=== PATIENT | female | born 1985 | race Hispanic/Latino ===

== ENCOUNTER 2017-09-04 21:19 | Emergency (ER) | payer BC, OTHER ==
[~2017-09-04 21:19] MED LIST: ISOVUE-370 76%-LOCM 1 ML ONE
--- NOTE | 2017-09-04 22:09 | RAD ---
ONE VIEW CHEST: 09/04/17 HISTORY: Pain. COMPARISON: 01/13/16. FINDINGS: Normal cardiac silhouette. The lungs and pleural bases are clear. No pneumothorax or osseous abnormal ities. IMPRESSION: No acute cardiopulmonary process. POS: [facility]
[2017-09-04 22:21] LABS: Eosinophils 1 % (0-10); Hemoglobin 12.5 g/dL (12.0-16.0); Lymphocytes 49 % (21-51); MDiff Complete? YES; Mean Corpuscular HGB CONC 33.1 g/dL (32.0-36.0); Mean Corpuscular Hemoglobin 29.4 pg (27.0-31.0); Mean Corpuscular Volume 88.8 fl (81.0-99.0); Monocytes 4 % (0-10); Neutrophil 45 % (42-75); PLT Morphology Comment Appears Increased; Platelet Count 419 thou/uL (130-400); RBC Distribution Width 12.3 % (11.5-14.5); Red Blood Cell (RBC) Count 4.25 mill/uL (4.20-5.40); White Blood Cell (WBC) Count 14.6 thou/uL (4.8-10.8)
[2017-09-04 22:29] LABS: BHCG - Serum Negative (NEGATIVE); Pregs Control Background? CLEAR/WHITE (CLR/WHITE); Pregs Control Bar Appear? YES (CONTROL BAR)
[2017-09-04 22:39] LABS: CKMB 0.6 ng/mL (0-6.6); Troponin I Less than 0.010 ng/mL (< 0.028)
[2017-09-04 22:49] LABS: ALT (SGPT) 16 U/L (8-55); AST (SGOT) 32 U/L (5-34); Albumin 4.4 g/dL (3.5-5.0); Alkaline Phosphatase 61 U/L (40-150); Anion Gap 17 mmol/L (10-20); BUN (Urea Nitrogen) 13 mg/dL (7.0-18.7); Bilirubin, Total 0.3 mg/dL (0.2-1.2); CK (CPK) 62 U/L (29-168); Calc. Creatinine Clearance 0 mL/min (70-130); Calcium 9.3 mg/dL (7.8-10.44); Carbon Dioxide 20 mmol/L (22-29); Chloride 105 mmol/L (98-107); Estimated GFR-MDRD 80; Globulin 3.5 g/dL (2.4-3.5); Glucose 138 mg/dL (70-105); Lipase 42 U/L (8-78); Potassium 5.5 mmol/L (3.5-5.1); Protein, Total 7.9 g/dL (6.0-8.3); Sodium 136 mmol/L (136-145)
[2017-09-04 22:55] LABS: Thyroid Stimulating Hormone 2.4858 uIU/mL (0.35-4.94)
--- NOTE | 2017-09-05 06:58 | CT ---
CTA CHEST WITH 3D VOLUME RENDERING: INDICATIONS: Substernal chest pain. Difficulty breathing. FINDINGS: There is no evidence of a significant filling defect of the pulmonary arterial system. The thoracic aorta is normal in caliber. There is no evidence of consolidation, effusion, or pneumothorax. No ac [place] osseous pathology is evident. IMPRESSION: No acute pulmonary embolus is seen. POS: [facility]
== END 2017-09-05 00:31 | disposition home or self-care (01) ==
LOC: ERS 21:19
DX: R07.89 Other chest pain (principal)
CPT/HCPCS: 71045; 71275; 80053; 82550; 82553; 83690; 83880; 84443; 84484; 84703; 85025; 85379; 93005; 96360; 96361

== ENCOUNTER 2018-01-31 19:47 | Emergency (ER) | payer BC, OTHER, SELFPAY ==
[2018-01-31 20:20] LABS: #Basophils 0.1 thou/uL (0.0-0.2); #Lymphocytes 2.4 thou/uL (1.20-3.40); #Monocytes 0.5 thou/uL (0.11-0.59); #Neutrophils 11.8 thou/uL (1.40-6.50); %Basophils 0.8 % (0.0-1.0); %Eosinophils 0.2 % (0.0-10.0); %Lymphocytes 16.4 % (21.0-51.0); %Monocytes 3.2 % (0.0-10.0); %Neutrophils 79.5 % (42.0-75.0); Hemoglobin 13.4 g/dL (12.0-16.0); Mean Corpuscular HGB CONC 33.1 g/dL (32.0-36.0); Mean Corpuscular Hemoglobin 28.6 pg (27.0-31.0); Mean Corpuscular Volume 86.2 fL (78.0-98.0); Mean Platelet Volume 7.3 fL (7.4-10.4); Platelet Count 527 thou/uL (130-400); RBC Distribution Width 12.6 % (11.5-14.5); Red Blood Cell (RBC) Count 4.69 mill/uL (4.20-5.40); White Blood Cell (WBC) Count 14.9 thou/uL (4.8-10.8)
[2018-01-31 22:49] LABS: ALT (SGPT) 13 U/L (8-55); AST (SGOT) 15 U/L (5-34); Albumin 4.8 g/dL (3.5-5.0); Alkaline Phosphatase 71 U/L (40-150); Anion Gap 15 mmol/L (10-20); BUN (Urea Nitrogen) 7 mg/dL (7.0-18.7); Bilirubin, Total 0.3 mg/dL (0.2-1.2); Calc. Creatinine Clearance 0 mL/min (70-130); Calcium 9.7 mg/dL (7.8-10.44); Carbon Dioxide 23 mmol/L (22-29); Chloride 105 mmol/L (98-107); Estimated GFR-MDRD 88; Globulin 3.4 g/dL (2.4-3.5); Glucose 132 mg/dL (70-105); Potassium 3.9 mmol/L (3.5-5.1); Protein, Total 8.2 g/dL (6.0-8.3); Sodium 139 mmol/L (136-145)
[2018-01-31 23:20] LABS: Bilirubin Negative (Negative); Blood, Urine Trace (Negative); Clarity CLEAR (Clear); Glucose, Urine (Dipstick) Negative (Negative); Leukocyte Negative (Negative); Nitrite Negative (Negative); Protein, Urine (Dipstick) Negative (Neg-Trace); Urobilinogen 0.2 mg/dL (0.2-1.0); pH, Urine 6.5 (5.0-9.0)
[2018-01-31 23:21] LABS: Bacteria/HPF None Seen HPF (None Seen); Hyaline Casts/LPF 0-3 HYALINE CAST LPF (0-3 Hyaline); Pregnancy Test - Urine (BHCG) Negative (Negative); Pregu Control Background? CLEAR/WHITE (CLR/WHITE); Pregu Control Bar Appear? YES (CONTROL BAR); RBC/HPF 0-3 HPF (0-3); Specific Gravity 1.003 (1.002-1.036); Squamous Epithelial 0-3 HPF (0-3); WBC/HPF None Seen HPF (0-3)
[2018-01-31 23:22] LABS: Specific Gravity, Urine 1.003 (1.002-1.036)
[2018-02-01 00:01] LABS: CKMB 0.6 ng/mL (0-6.6); Troponin I Less than 0.010 ng/mL (< 0.028)
--- NOTE | 2018-02-01 07:13 | RAD ---
PORTABLE AP CHEST: Date: 01/31/18 HISTORY: Abnormal hemoglobin level. Weakness. Chest pain. COMPARISON: 09/04/17. FINDINGS: The cardiac silhouette and pulmonary vasculature are within normal limits. The lungs remain clear. Th ere has been no interval change from prior study. IMPRESSION: No acute cardiopulmonary process. POS: [facility]
== END 2018-02-01 00:53 | disposition home or self-care (01) ==
LOC: ERS 19:47
DX: R59.1 Generalized enlarged lymph nodes (principal)
CPT/HCPCS: 36415; 71045; 80053; 81003; 81015; 81025; 82553; 84484; 85025; 85379; 86850; 86900; 86901; 93005

== ENCOUNTER 2018-02-03 14:19 | Observation (INO) | payer SELFPAY ==
[2018-02-03 15:11] LABS: #Basophils 0.1 thou/uL (0.0-0.2); #Eosinphils 0.1 thou/uL (0.0-0.7); #Lymphocytes 2.7 thou/uL (1.20-3.40); #Monocytes 0.7 thou/uL (0.11-0.59); #Neutrophils 6.6 thou/uL (1.40-6.50); %Basophils 1.1 % (0.0-1.0); %Eosinophils 0.9 % (0.0-10.0); %Lymphocytes 26.3 % (21.0-51.0); %Monocytes 7.2 % (0.0-10.0); %Neutrophils 64.5 % (42.0-75.0); Hemoglobin 13.6 g/dL (12.0-16.0); Mean Corpuscular HGB CONC 33.2 g/dL (32.0-36.0); Mean Corpuscular Hemoglobin 28.5 pg (27.0-31.0); Mean Corpuscular Volume 85.8 fL (78.0-98.0); Mean Platelet Volume 7.3 fL (7.4-10.4); Platelet Count 469 thou/uL (130-400); RBC Distribution Width 12.8 % (11.5-14.5); Red Blood Cell (RBC) Count 4.79 mill/uL (4.20-5.40); White Blood Cell (WBC) Count 10.2 thou/uL (4.8-10.8)
[2018-02-03 15:18] LABS: BHCG - Serum Negative (NEGATIVE); Pregs Control Background? CLEAR/WHITE (CLR/WHITE); Pregs Control Bar Appear? YES (CONTROL BAR)
--- NOTE | 2018-02-03 15:25 | RAD ---
UPRIGHT PORTABLE CHEST 1 VIEW: HISTORY: A 33-year-old female with a history of syncope. COMPARISON: 01/31/18. FINDINGS: Heart size is normal. The lungs are clear. No pneumonia, edema, or pleural effusion. IMPRESSION: No acute intrathoracic disease. Stable from 01/31/18. POS: [facility]
[2018-02-03 15:26] LABS: ALT (SGPT) 13 U/L (8-55); AST (SGOT) 13 U/L (5-34); Albumin 5.1 g/dL (3.5-5.0); Alkaline Phosphatase 77 U/L (40-150); Anion Gap 16 mmol/L (10-20); BUN (Urea Nitrogen) 8 mg/dL (7.0-18.7); Bilirubin, Total 0.4 mg/dL (0.2-1.2); Calc. Creatinine Clearance 0 mL/min (70-130); Calcium 10.4 mg/dL (7.8-10.44); Carbon Dioxide 23 mmol/L (22-29); Chloride 104 mmol/L (98-107); Estimated GFR-MDRD 77; Globulin 3.3 g/dL (2.4-3.5); Glucose 140 mg/dL (70-105); Potassium 4.3 mmol/L (3.5-5.1); Protein, Total 8.4 g/dL (6.0-8.3); Sodium 139 mmol/L (136-145)
[2018-02-03 15:29] LABS: Bilirubin Negative (Negative); Blood, Urine Negative (Negative); Clarity CLEAR (Clear); Glucose, Urine (Dipstick) Negative (Negative); Leukocyte Negative (Negative); Nitrite Negative (Negative); Protein, Urine (Dipstick) Negative (Neg-Trace); Urobilinogen 0.2 mg/dL (0.2-1.0)
[2018-02-03] MEDS ORDERED: Piperacillin/Tazobactam 4.5 GM VIAL ONE (15:35)
[2018-02-03 15:37] LABS: Specific Gravity, Urine 1.002 (1.002-1.036)
[2018-02-03] MEDS ORDERED: Ondansetron ODT 4 MG TAB SL PRN (19:03)
[2018-02-03] MEDS ORDERED: Ondansetron HCl/PF 4 MG/2 ML Vial IVP PRN (19:03)
[2018-02-03] MEDS ORDERED: HYDROcodone/Acetaminophen 5/325 mg Tablet PO PRN ×2 (19:03)
[2018-02-03] MEDS ORDERED: Acetaminophen 325 MG TAB PO PRN (19:03)
[2018-02-03 19:35] VITALS: BMI 25.6
[2018-02-03 19:38] LABS: Lactic Acid 1.8 mmol/L (0.5-2.2)
[2018-02-03] MEDS: Sodium Chloride 0.9% 1,000 ML IV SCH (19:55)
--- NOTE | 2018-02-03 22:43 | HP ---
DATE OF ADMISSION: 02/03/2018 CHIEF COMPLAINT: Syncope. HISTORY OF PRESENT ILLNESS: The patient is a 33-year-old female who presented via the emergency depa rtment. The patient's symptoms started 1 month ago. She initially started having some burning in he r throat, then in her mouth and tongue area. She saw a physician at that time and was told she had s ome enlarged lymph nodes and was started on a 10-day course of antibiotics. Her symptoms did not jerzy nge. She was told that it might be reflux and so she was prescribed Zantac. Her who is a pr eMed student decided to try some wzfn-wdy-lcwgofm Prilosec first. When that did not help, they tried the prescription, Zantac, that did not help either. About one week ago, she started developing some chest pain, cough, and sputum production. She describes the chest pain as a pulsating type. She al so has some associated generalized fatigue and some mild dyspnea on exertion. Two days ago, patient had pain in her upper abdomen as well. She also reports that 3 weeks ago, she started experiencing w eakness that she felt like started in her head then moved down to her neck and then her entire body. This feels constant. A week ago, she also had some nausea and started vomiting a couple of days ago , vomited 3 times yesterday, twice today. She has also had some mild anorexia. Her states t hat she is so fatigued that he has to help her get up to the bathroom at times. She has been too fat igued even care for her child. She has been experiencing some lightheadedness. They ultimately deci ded to go to an urgent care center on Sunday. There they told her that her hemoglobin was so low, th tamie could not detect it and told her to come to the emergency room. She did come to the emergency [facility] here where she had a CBC that revealed a normal hemoglobin 13.4, but elevated white count at 14.9. She also had a platelet count of 527. She actually a little left shift with 11.8 neutrophils and 79 .5% neutrophils, 16.4 lymphocytes. She was discharged. Today, the patient got up to go to the bathr oom and while she just made it inside the bathroom door, became lightheaded and slid to the floor. H er reports that she was unconscious, but he was able to very quickly get her back awake again . Therefore, they presented back to the emergency department. In the emergency department, the jaun ent was noted to have an abnormal EKG. This was true on Sunday and still true again today. They rep ort that she saw Dr. Goel 3 months ago from a referral from her PCP. Regarding the abnormal EKG , she had an echocardiogram at that time and was reassured that her heart was actually okay. REVIEW OF SYSTEMS: She has had no fever, but has had some chills. Her weight is down about 6 pounds over the last couple of months. She has had no night sweats, but has had the profound fatigue. Eye s: She has had no vision changes or eye pain. ENT: She has had nasal congestion and sore throat. No rhinorrhea. Respiratory: She has had some cough and sputum production, which is modest and gener ally clear, but with deep cough will occasionally be tinged yellow. She does have occasional shortne ss of breath and exercise intolerance. Cardiovascular: She has had the above-mentioned chest pain a nd palpitations. No edema. Gastrointestinal: She has had the nausea and vomiting. No diarrhea, co nstipation. She did have one episode of epigastric abdominal pain. Genitourinary: No dysuria or in continence. Skin: No rashes or lesions. Musculoskeletal: No pain, tenderness, stiffness, or swell ing. Neurologic: The patient does have some numbness and did have the syncope episode today. She d oes have weakness. She does have numbness, reports that she had an episode about a month ago in [facility] she developed numbness over the right side of her face and her right arm which she described as fee ling like ants crawling on her. She has had no seizure activity. Psychiatric: She has had no agita tion, anxiety or depression. PAST MEDICAL HISTORY: Negative. She had one uneventful . PAST SURGICAL HISTORY: None. FAMILY HISTORY: Notable for asthma and some iron deficiency anemia. Her sister recently had a chond mesfin surgically removed. SOCIAL HISTORY: No alcohol, tobacco or drugs. She is and has one child. Note, the patient' s sister did have a chondroma recently removed and she has been helping care for her sister and her s ister's children, which may be a source of some significant additional stress. ALLERGIES: KETOROLAC, TROMETHAMINE, and METOCLOPRAMIDE. MEDICATIONS: The patient recently started taking the vitamins since Sunday when she was ini shay told she was anemic. PHYSICAL EXAMINATION: VITAL SIGNS: Temperature 98.4, pulse 99, respirations 16, 98% on room air, BP 131/78. GENERAL APPEARANCE: Age appropriate female. She is in no distress. She is awake, alert, oriented, pleasant, cooperative. She is German speaking only. HEENT: PERRL. No OP lesions. Minimal pharyngeal erythema. No significant tonsillar hypertrophy or erythema. NECK: Supple and symmetric without lymphadenopathy. There is air in the left medial supraclavicular area where she was told previously she had an enlarged lymph node. She feels like this is unchanged . It is nontender and I do not appreciate a discrete lymph node there. CARDIAC: Regular rate and rhythm without murmurs, gallops or rubs. LUNGS: Clear to auscultation bilaterally with good chest wall expansion. Good air exchange. ABDOMEN: Soft, nontender, nondistended, positive bowel sounds. No masses and organomegaly. EXTREMITIES: Warm and dry with no edema. NEUROLOGIC: Cranial nerves are intact. She has good strength and sensation throughout. She has nor mal Romberg. LABORATORY DATA: White count 10.2, hemoglobin 13.6, platelets 469. Sodium 139, potassium 4.3, chlor cinthya 104, CO2 23, BUN 8, creatinine 0.85, glucose 140, lactic acid 2.4, calcium 10.4, AST 13, ALT 13. CRP is less than 0.50. Total serum protein 8.4, albumin 5.1, prolactin 20.74. Urine test negative. Urinalysis negative. Chest x-ray is negative. IMPRESSION AND PLAN: 1. Syncopal episode in a patient with a history of abnormal EKG and several weeks of various constel lation of symptoms, the patient does have elevated platelet count and did have an elevated white cou nt just a couple of days ago when seen in the emergency department. Both of those were improving. I t is unclear if this patient has some underlying infection or if she is having some form of a neurolo gical issue potentially in light of an infection as well. We will continue to hydrate overnight, fee l compelled to go ahead and get an MRI of her head and ask Neurology to see her, although I think thi s may be more infectious in nature. 2. Leukocytosis was there on Sunday resolved here today two later. 3. Thrombocytopenia, likely acute phase reactant. 4. Lactic acid of 2.4, repeat was 1.8 and patient does not appear to be septic. 5. Cardiovascular: The patient had a significant evaluation by Dr. Goel within the last 3 valdemar hs. We will need to obtain records from his office to see what type of evaluation, she had and deter mined if she needs any further workup.
[2018-02-04] MEDS: Sodium Chloride 0.9% 1,000 ML IV SCH ×3 (02:42→20:52)
[2018-02-04] MEDS ORDERED: Acetaminophen 325 MG TAB PO PRN (08:27)
[2018-02-04] MEDS ORDERED: Ondansetron HCl/PF 4 MG/2 ML Vial IVP PRN (08:28)
[2018-02-04] MEDS: Pantoprazole 40 MG VIAL IVP SCH ×2 (08:47→20:49)
[2018-02-04 10:01] LABS: #Basophils 0.1 thou/uL (0.0-0.2); #Eosinphils 0.1 thou/uL (0.0-0.7); #Lymphocytes 3.1 thou/uL (1.20-3.40); #Monocytes 0.6 thou/uL (0.11-0.59); #Neutrophils 6.5 thou/uL (1.40-6.50); %Basophils 0.8 % (0.0-1.0); %Eosinophils 1.3 % (0.0-10.0); %Monocytes 5.6 % (0.0-10.0); %Neutrophils 62.3 % (42.0-75.0); Hemoglobin 11.6 g/dL (12.0-16.0); Mean Corpuscular HGB CONC 31.9 g/dL (32.0-36.0); Mean Corpuscular Hemoglobin 27.5 pg (27.0-31.0); Mean Corpuscular Volume 86.2 fL (78.0-98.0); Mean Platelet Volume 6.9 fL (7.4-10.4); Platelet Count 473 thou/uL (130-400); RBC Distribution Width 12.6 % (11.5-14.5); Red Blood Cell (RBC) Count 4.23 mill/uL (4.20-5.40); White Blood Cell (WBC) Count 10.5 thou/uL (4.8-10.8)
[2018-02-04 10:25] LABS: ALT (SGPT) 11 U/L (8-55); AST (SGOT) 13 U/L (5-34); Albumin 4.1 g/dL (3.5-5.0); Alkaline Phosphatase 61 U/L (40-150); Anion Gap 11 mmol/L (10-20); BUN (Urea Nitrogen) 4 mg/dL (7.0-18.7); Bilirubin, Total 0.5 mg/dL (0.2-1.2); Calc. Creatinine Clearance 120 mL/min (70-130); Calcium 9.2 mg/dL (7.8-10.44); Carbon Dioxide 22 mmol/L (22-29); Chloride 110 mmol/L (98-107); Estimated GFR-MDRD Greater than 90; Globulin 2.8 g/dL (2.4-3.5); Glucose 115 mg/dL (70-105); Potassium 3.7 mmol/L (3.5-5.1); Protein, Total 6.9 g/dL (6.0-8.3); Sodium 139 mmol/L (136-145)
--- NOTE | 2018-02-04 12:15 | MRI ---
MRI BRAIN WITHOUT CONTRAST: Date: 02/04/18 HISTORY: 33-year-old female with syncope and paresthesias. FINDINGS: No restricted diffusion is seen. No evidence of infarct, hemorrhage, midline shift, or abnormal extra -axial fluid collections are seen. Ventricular size is normal and the basilar cisterns are patent. No signal abnormalities are noted on the highly sensitive FLAIR images. No restricted diffusion is iden tified. No blood products are noted on the gradient echo sequences. The visualized paranasal sinuses and mastoid air cells are well aerated. No tonsillar herniation is seen. IMPRESSION: Unremarkable exam. POS: [facility]
--- NOTE | 2018-02-04 14:00 | CT ---
SOFT TISSUE NECK CT WITH CONTRAST: HISTORY: Generalized weakness. Left supraclavicular nodule. Pain. COMPARISON: None. TECHNIQUE: A postcontrast soft tissue neck CT is performed in the axial plane. Reformatted images are submitted for interpretation. FINDINGS: Visualized brain parenchyma is unremarkable. Adequate aeration of the visualized sinuses and mastoid air cells. Upper mediastinum and lung apices are unremarkable. Cervical spine vertebral body height is maintained. There is no fracture. Straightening of normal c ervical lordosis due to patient position, muscle spasm, or cervical collar. The current study is not tailored to assess for ligamentous injury. The central spinal canal and neural foramen are patent. Aerodigestive tract is patent. No mucosal abnormality. No obvious masses within the oral cavity. M idline fatty raphae of the tongue is preserved. Epiglottis has a normal caliber. Preepiglottic fat is preserved. Symmetric attenuation of the parotid and submandibular glands. Symmetric attenuation of the sternocl eidomastoid muscles. Grossly, the great vessels of the neck are patent. Unremarkable thyroid gland. Mildly enlarged right level II lymph node measuring 1.5 x 0.9 cm. Mildl y enlarged left level II lymph node measuring 1.2 x 0.8 cm. Additional scattered nonspecific, nonenl arged soft tissue neck lymph nodes are noted. There is no evidence of a right or left supraclavicula r/periclavicular mass or enlarged lymph node. IMPRESSION: Nonspecific mildly enlarged bilateral level II lymph nodes. Otherwise, unremarkable exam. No eviden ce of a left or right periclavicular/supraclavicular enlarged lymph node or mass. POS: [facility]
[2018-02-04 14:04] LABS: Syphilis Antibody Nonreactive (Nonreactive); Syphilis Antibody Index 0.05 S/CO (<1.00 Non-Reactive)
[2018-02-04 14:19] LABS: Folate (Folic Acid) 13.3 ng/mL (7.0-31.4)
--- NOTE | 2018-02-04 14:41 | CON ---
DATE OF CONSULTATION: 02/04/2018 REFERRING PHYSICIAN: Satya Daugherty M.D. REASON FOR CONSULTATION: Syncope. HISTORY OF PRESENT ILLNESS: Ms. Rojas is a pleasant 33-year-old female who has been consulted for evaluation of syncope. History is obtained from patient's who acts as a electric arc welder during my interview with her. He reports that patient has been having increasing episodes of fatigue and tiredness over the past 1 month. Her symptoms initially started with burning sensation in her throat that was going up to her tongue and inside her mouth. She had seen primary care physician who had initially felt that she may have infection in her throat for which she was given antibiotic for a 10-day course. This did not help improve her symptoms. She then was told that it may have been due to acid reflux and was given Zantac. He had tried tvkc-coh-icxsari antacid medications without any help. She also tried Zantac without any help during this time. She also started noticing feeling fatigued and tired and weakness coming on. She felt weak from head to toe. She felt a jello type sensation in her legs and felt like she could not walk. She also noticed weakness in her upper extremities. She was able to walk and perform her daily routine activities, but felt like she may fall down and she had to hold onto objects while walking. She also felt unsteady on her feet. She denied having any numbness, tingling sensation in upper or lower extremities. There was no double vision or blurry vision. There is no dysarthria. She did have some difficulty with swallowing and that she felt something stuck in her throat; however, she was able to eat normally. She did not have any difficulty with her bowel or bladder function. PAST MEDICAL HISTORY: None. PAST SURGICAL HISTORY: None significant. SOCIAL HISTORY: She denies smoking, alcohol use, or illicit drug use. She is and has 1 child. CURRENT MEDICATIONS: Please review MAR. ALLERGIES: Include TORADOL, TROMETHAMINE, and METOCLOPRAMIDE. REVIEW OF SYSTEMS: As mentioned above in HPI, otherwise negative. PHYSICAL EXAMINATION: VITAL SIGNS: Blood pressure of 128/68, pulse of 95, temperature of 99.4, respirations of 20, O2 sats 97% on room air. GENERAL: Well-developed, well-nourished female in no apparent distress. RESPIRATORY: Clear to auscultation bilaterally. CARDIOVASCULAR: Regular rate and rhythm. NEUROLOGIC: Mental status: The patient is awake, alert, oriented x3. Speech and language: Fluent speech. Cranial nerves: Pupils are 3 mm and reactive. Visual peralta are intact. Extraocular muscles are intact. No nystagmus. Face is symmetric. Tongue and uvula midline. Motor exam showed normal tone and bulk with a 5/5 strength in both upper extremities. Sensory: Sensation is intact and symmetric. Deep tendon reflexes 2+ reflexes in both upper and lower extremities. Babinski: Plantar responses flexion bilaterally. Coordination intact to ghlmsi-qsym-whndgw tapping bilaterally. Romberg is negative. LABORATORY DATA: Reviewed, which included CBC, CMP, and urinalysis significant which is nonsignificant. TSH was normal. Prolactin level was normal. IMAGING STUDIES: MRI brain without contrast was reviewed, which showed no acute intracranial abnormality was essentially normal. IMPRESSION: 1. Generalized weakness. 2. Syncope. Ms. Rojas presented with a 1-month history of ongoing gradual fatigue and tiredness and weakness. She had an episode yesterday in which she had fell down and lost consciousness lasting less than 5 seconds. There was no jerking, no convulsions noted. There was no postictal confusion noted. She was back to her baseline. Following this episode, based on this event, this is unlikely to be related to seizure. Her neurological exam is non-focal during my evaluation. I have reviewed her MRI which is normal. This rules out stroke, mass, tumor or MS as the likely source for her symptoms. Given that she has normal reflexes, this also rules out an inflammatory demyelinating polyneuropathy. One of my concerns is that this may be related to stress as she has been under a lot of stress with her sister undergoing surgery for recent cancer and she has been taking care of her 3 children. In any case, I would recommend obtaining B12, folic acid, B1, B6 level. If they are normal, I will also recommend obtaining EEG. If they are normal, patient can be followed up as an outpatient in Neurology clinic with Dr. Patterson. JACKLYN
--- NOTE | 2018-02-04 15:32 | ULT ---
GALLBLADDER ULTRASOUND: HISTORY: Vomiting. Nausea. COMPARISON: None. TECHNIQUE: Utilizing a Multi-Hertz transducer, sonographic imaging of the right upper quadrant was performed in the longitudinal and transverse plane. FINDINGS: The pancreas is obscured by bowel gas. Limited evaluation of the gallbladder fundus due to bowel gas . No sonographic evidence of cholelithiasis, gallbladder wall thickening, or pericholecystic fluid. A negative Vilchis sign is reported. Suboptimal evaluation of the common bile duct. Right kidney: Normal cortical echotexture. No hydronephrosis. The right kidney measures 4.9 x 4.9 x 9.5 cm. The visualized hepatic parenchyma is unremarkable. The right hepatic lobe measures 12.2 cm. The main portal vein is patent. Appropriate directional flow. IMPRESSION: 1. Limited evaluation due to bowel gas. 2. No sonographic evidence of cholelithiasis or cholecystitis. POS: [facility]
[2018-02-04 18:31] LABS: HIV (1/2) Antibody/Antigen Non-Reactive (NonReactive); HIV 1/2 INDEX 0.08 S/CO (<1.00)
--- NOTE | 2018-02-04 21:30 | PDOC.PN ---
- Subjective Encounter Start Date: 02/04/18 Encounter Start Time: 10:30 Subjective: pt up in bed no complains - Objective Resuscitation Status: Resuscitation Status FULL:Full Resuscitation Vital Signs & Weight: Vital Signs (12 hours) Temp Pulse Resp BP Pulse Ox 02/04/18 19:50 98.9 F 90 12 02/04/18 19:12 98.9 F 90 12 118/64 95 02/04/18 15:50 98.6 F 96 20 138/71 98 02/04/18 12:30 99.4 F 95 20 128/68 97 Weight Weight 136 lb 9.6 oz I&O: 02/03/18 02/04/18 02/05/18 06:59 06:59 06:59 Intake Total 1740 1771 Output Total 2200 Balance -460 1771 Result Diagrams: 02/04/18 09:43 02/04/18 09:43 Phys Exam - Physical Examination Neck: no nodes, no JVD, supple, full ROM Respiratory: no wheezing, no rales, no rhonchi, wheezing present, clear to auscultation bilateral Cardiovascular: RRR, no significant murmur, no rub, gallop, irregular Gastrointestinal: soft, non-tender, no distention, positive bowel sounds cervical lymphadenopathy Dx/Plan (1) Syncope Code(s): R55 - SYNCOPE AND COLLAPSE Status: Acute (2) Nausea & vomiting Code(s): R11.2 - NAUSEA WITH VOMITING, UNSPECIFIED Status: Acute - Plan will get ct neck -: MRI brain ordered -: neurology consulted -: will also check hiv * . Review of Systems - Review of Systems Respiratory: negative: Cough, Dry, Shortness of Breath, Hemoptysis, SOB with Excertion, Pleuritic Pain, Sputum, Wheezing Cardiovascular: negative: chest pain, palpitations, orthopnea, paroxysmal nocturnal dyspnea, edema, light headedness, other Gastrointestinal: negative: Nausea, Vomiting, Abdominal Pain, Diarrhea, Constipation, Melena, Hematochezia, Other Genitourinary: negative: Dysuria, Frequency, Incontinence, Hematuria, Retention , Other - Medications/Allergies Allergies/Adverse Reactions: Allergies Allergy/AdvReac Type Severity Reaction Status Date / Time ketorolac tromethamine Allergy Mild Hives Verified 02/03/18 19:45 [From Toradol] metoclopramide HCl Allergy Mild Hives Verified 02/03/18 19:45 [From Reglan] Medications: Current Medications Acetaminophen (Tylenol) 650 mg PO Q6H PRN PRN Reason: Fever/Mild Pain Sodium Chloride (Normal Saline 0.9%) 1,000 mls @ 100 mls/hr IV .Q10H [facility] Last Admin: 02/04/18 20:52 Dose: 1,000 mls Ondansetron HCl (Zofran) 4 mg IVP Q6H PRN PRN Reason: Nausea/Vomiting Pantoprazole Sodium (Protonix) 40 mg IVP Q12HR [facility] Last Admin: 02/04/18 20:49 Dose: 40 mg
[2018-02-05] MEDS ORDERED: Sucralfate 1 GM/10 ML UDCUP ONE (08:24)
--- NOTE | 2018-02-05 11:26 | DIS ---
DATE OF ADMISSION: 02/03/2018 DATE OF DISCHARGE: 02/04/2018 DISCHARGE DIAGNOSES: As of the following, 1. Syncope. 2. Nausea and vomiting. HOSPITAL COURSE: The patient is a very pleasant 33-year-old female, who initially presented to the [facility] with multiple complaints including some burning sensation in her throat with a syncopal episo de and also some nausea, vomiting, and generalized fatigue. The patient initially underwent a chest x-ray, which apparently was normal. She was admitted over a nonspecific observation status for furth er evaluation. The patient did undergo an MRI brain, which was essentially normal. She also had a s oft tissue CT of the neck for some lymphadenopathy, which indicated that she did have a mildly enlarg ed right level 2 lymph node and also mildly enlarged left level 2 lymph node. Additional scattered n onspecific nonenlarged soft tissue neck lymph nodes were also noted. The patient has been very stres sed recently given her sister's diagnosis of cancer. This is per patient's . The patient als o underwent a right upper quadrant ultrasound, which essentially also was normal. Patient has been t aking [id number] Zantac and Prilosec without any relief. Given her symptoms, I did put her on some Protonix IV and also added some Carafate. The patient stated that her symptoms have improved in terms of burning and she feels much better. Nausea and vomiting have resolved. She is tolerating a diet. She was also seen by Neurology, who ordered a syphilis test, which was negative. Also, I cindy cked an HIV, which was also negative. The patient and were educated that they will need to f ollow up with a sling operator, and I have provided a name, in the next week or two if her burnin g sensation continues to worsen. I have asked her to refrain from spicy foods. Also, she needs to f ollow up with her primary care doctor and I did mention it to the in terms of reevaluating he r lymphadenopathy, which could be possibly due to a viral etiology. I also checked LDH on her. Her LDH was also normal. She did only have low vitamin D, which was replaced. Her TSH was 1.4. PHYSICAL EXAMINATION: VITAL SIGNS: 98.3, 83, 16, 100% on room air, 111/65. GENERAL: She is awake, alert, oriented x3, does not appear in distress. CARDIOVASCULAR: S1 and S2 present. No murmurs, rubs, or gallops. ABDOMEN: Soft, nontender. Bowel sounds are present x2. EXTREMITIES: No edema. Again, she does have some left palpable lymphadenopathy. Again, she will be discharged home and foll ow up with her primary and also with GI as an outpatient. Protonix 40 mg b.i.d., Carafate 1 gram p.o . at bedtime for 7 days, vitamin, and vitamin D 1000 units p.o. daily. I also checked a pre gnancy test, which was negative.
[2018-02-05 13:28] VITALS: BP 119/73; TEMP 98.8
== END 2018-02-05 12:58 | disposition home or self-care (01) ==
LOC: ERS 14:19 → 2SW 17:25
PROVIDERS: ADMIT Internal Medicine; ATTEND Internal Medicine
DX: R55 Syncope and collapse (principal); R11.2 Nausea with vomiting, unspecified; D72.829 Elevated white blood cell count, unspecified; D69.6 Thrombocytopenia, unspecified; Z88.8 Allergy status to other drugs, medicaments and biological substances
CPT/HCPCS: 36415; 70491; 70551; 71045; 76705; 80053; 81003; 82306; 82607; 82746; 83605; 83615; 83690; 84146; 84207; 84425; 84443; 84703; 85025; 86140; 86780; 87040; 87389; 93005; 96361; 96365; 96375; 96376; C9113; G0378; J2543; J3370

== ENCOUNTER 2020-06-11 12:51 | Outpatient (CLI) | payer OTHER ==
--- NOTE | 2020-06-11 13:37 | RAD ---
RADIOGRAPH CHEST 2 VIEWS: 06/11/20 HISTORY: 35-year-old COVID-19 positive female with chest pain. FINDINGS: There is no air space density, pulmonary edema, pleural effusion, pneumothorax, or cardiomegaly. IMPRESSION: No acute cardiopulmonary findings. jn [] POS: [facility]
== END 2020-06-11 12:52 | disposition home or self-care (01) ==
LOC: BICRAD 12:51
PROVIDERS: ATTEND Family Medicine
DX: U07.1 COVID-19 (principal); R07.9 Chest pain, unspecified
CPT/HCPCS: 71046

== ENCOUNTER 2022-01-13 10:59 | Outpatient (CLI) | payer OTHER | END 2022-01-13 11:00 | disposition home or self-care (01) | LOC: BICRAD 10:59 | PROVIDERS: ATTEND Nurse Practitioner Family | DX: J40 Bronchitis, not specified as acute or chronic (principal) | CPT/HCPCS: 71046 ==